=== PATIENT | female | born 1975 | race Caucasian/White ===

== ENCOUNTER 2017-01-25 06:40 | Day surgery (SDC) | payer OTHER ==
[2017-01-25] VITALS (10 sets, daily range): BP systolic 96–121; BP diastolic 59–77; PULSE 65–108; RESP 7–26; O2SAT 95–99
[~2017-01-25] VITALS: Ht 162.6 cm; Wt 70.3 kg
[~2017-01-25 06:40] MED LIST: BUSP15TA3 PO; CeFAZolin Inj 2 GM in IV Premix 1 EACH IV ONE; NORG1TAB32 PO; OMEP20CA11 PO; ONDA4TAB6 PO; OXYC1TAB24 PO; TOPI-59 PO; TRAZ-115 PO; VALA500T38 PO
[2017-01-25] MEDS ORDERED: Ketamine 10 mg/mL 20 mL Inj ONE (06:41)
[2017-01-25] MEDS ORDERED: Glycopyrrolate 0.2 MG/ML 1mL Inj ONE (06:41)
[2017-01-25] MEDS ORDERED: Neostigmine 1 mg/mL 10 mL Inj ONE (06:41)
[2017-01-25] MEDS ORDERED: fentaNYL-PF 50 mCg/mL 2 mL Inj ONE (06:41)
[2017-01-25] MEDS ORDERED: Propofol 10,000 mCg/mL 20 mL Inj ONE (06:41)
[2017-01-25] MEDS ORDERED: Dexamethasone 4 mg/mL Inj ONE (06:41)
[2017-01-25] MEDS ORDERED: Ondansetron 2 mg/mL 2 mL Inj ONE (06:41)
[2017-01-25] MEDS ORDERED: Lactated Ringer's 1,000 ML IV SCH (07:24)
[2017-01-25] MEDS ORDERED: Lactated Ringer's 500 ML IV PRN (07:24)
--- NOTE | 2017-01-25 07:24 | PCM.HPANE ---
Patient Data Surgeon Admitting Provider: Attending Provider:Mariella Castro MD Primary Care Physician:Luh South MD Other Provider:Carleen Contrerasingham Anesthesia Reason for Visit Biliary Dyskinesia Ht/WT & BMI Height (Feet): 5 Height (Inches): 4 Weight (Kilograms): 71.75 Body Mass Index 27.00 Allergies Coded Allergies: codeine (Verified Allergy, Severe, Nausea,Vomiting, 01/25/17) hydromorphone HCl (Verified Allergy, Severe, CHEST PAIN, 01/25/17) Past Anesthesia History Anesthesia History: Positive for:: Anesthesia Reactions (vomiting and VERY talkative), Denies:: Abnormal Airway, Difficult Intubation, Fam Anesthesia Reaction, Fam Malignant Hypertherm, Malignant Hyperthermia Diabetes History Hx Diabetes?: No MRSA MRSA: No Medications Hypertension Medication: No Home Meds Incl Beta Christal: No Active Scripts oxyCODONE-Acetaminophen 5-325 mg 1 Each Tablet1-2 Tab PO Q6H PRN For Pain #15 TABLET Prov:Enzo Draper MD 01/06/16 Ondansetron (Zofran)4 Mg Tablet4 Mg PO Q4H PRN For Nausea #10 TABLET Prov:Enzo Draper MD 01/06/16 Reported Medications Norgestrel-Ethinyl Estradiol (Low-Ogestrel)1 Each Tablet1 Each PO DAILY 01/06/16 Valacyclovir 500 Mg [id number] Mg PO HS 01/06/16 Trazodone 50 Mg Jbdkmp30 Mg PO HS 30 Days Ref 0 05/29/14 Buspirone 15 Mg Lqpsvs70 Mg PO BID 30 Days Ref 0 05/29/14 Discontinued Reported Medications Omeprazole 20 Mg Capsule.dr20 Mg PO DAILY Ref 0 01/18/17 Topiramate 25 Mg Qhadcq79 Mg PO HS Ref 0 01/06/16 Clonazepam 0.5 Mg Tablet0.5 Mg PO BID PRN For Anxiety Ref 0 01/06/16 History History of ENT Problems?: Yes HEENT History: Positive for:: Dysphagia (something feel stuck in throat) Denies:: Abnormal Airway Cataracts Difficult Intubation Glaucoma Hearing Problem Sinus Problem TMJ Denture Type: None Teeth Condition: Within Normal Limits Hx of Heart Problems?: Yes Cardiovascular History: Denies:: AICD Abdominal Aortic Aneurism Atrial Fibrillation Cardiac Surgery Chest Pain Congestive Heart Failure Coronary Artery Disease Edema Heart Murmur Hypertension Irregular Heartbeat Pacemaker Peripheral Vascular Rheumatic Fever Thrombophlebitis Valvular Heart Disease Hx of Respiratory Problem?: Yes Respiratory History: Positive for:: Pneumonia (2011) Denies:: Asthma COPD Chest Surgery Cough Dyspnea Emphysema Hemoptysis Pulmonary Embolism Tuberculosis Hx Neurologic Problems?: Yes Neurological History: Positive for:: Headaches (Related to C2 being out, tx with chiropractic adjustment) Denies:: Alzheimer's Disease CVA Dementia Dizziness Multiple Sclerosis Parkinson's Disease Seizures TIA Hx of GI Problems?: Yes Hx of Problems?: No Genitourinary History: Denies:: HX of Hemodialysis Kidney Stones Urinary Tract Infection HX of Peritoneal Dialysis: No Female Hx: Denies:: Currently Endometriosis Problems with Breasts? Skin History: Denies:: History Skin Disorders? Pressure Ulcers Hx Musculoskeletal Problems?: No Musculoskeletal History: Denies:: Back Injury Degenerative Joint Fibromyalgia Joint Replacement Musculoskeletal Trauma Myasthenia Gravis Osteoarthritis Rheumatoid Arthritis Systemic Lupus Psycho Social History: Positive for:: Anxiety Denies:: Bipolar Disorder Hx Depression Suicide Attempt Hx Surgeries?: Yes (Appy, tonsillectomy) Hx Any Other Health Problems?: Yes Other History: Positive for:: Hospitalization Denies:: Cancer Endocrine Disease Thyroid Disease History Blood Transfusions: Positive for:: Accept Blood Products? Denies:: Blood Transfusions Hx Diabetes: No Hx Alcohol Use: Yes (Wine with dinner)Alcoholic Drinks Per Day: 1-2 glasses of wineHx Substance Use: No Smoking Status: Never Smoker Have You Smoked inLast 12 mo: No Stop/Bang Treated for Sleep Apnea?: No Do You Have a CPAP Machine?: No S-Snoring: Do You Snore Loudly: No T-Tired: feel tired, fatigued: No O-Obsered: Observed not breath: No P-Blood Pressure: treated: No B- Body Mass Index > 35 kg/m2: No A- Age over 50: No N- Neck Large Circumference: No G- Gender Male: No MONE Total Score: 0 MONE Risk Assessment: Low Risk, <3 Yes Risk Assessment Category Category 1A: Patient has history of documented sleep apnea, and HAS NOT received any narcotic, sedative or anesthesia administration during this stay. Category 1B: Patient has history of documented sleep apnea, and HAS received any narcotic , sedative or anesthesia administration during this stay Category 2: Patient has SUSPECTED Obstructive Sleep Apnea, and HAS received any narcotic , sedative or anesthesia administration during this stay. Category 3: Patient has SUSPECTED Obstructive Sleep Apnea and HAS NOT received narcotic, sedative or anesthesia administration during this stay. Category 4: Outpatient in Procedural Areas with known sleep apnea or who screen positive for High Risk via the STOP/BANG questionnaire. Exam Exam General Appearance: Alert, Oriented X3, Cooperative, No Acute Distress HEENT/AIRWAY: MP 2 Lungs: Clear to Auscultation, Normal Air Movement Heart: Exam Unremarkable, Regular Rate/Rhythm, No Murmurs/Rubs/Gallops Plan Impression Patient chart reviewed, patient interviewed and anesthestic plan with risks, benefits, and alternatives discussed, and informed consent obtained. ASA Physical Status: ASA2 Mod Systemic Disease Anesthetic Plan: GA Bene/Risks/Altern/Consents: Yes HP Complete Prior to Induction: Yes Pedro Calvo MD Jan 25, 2017 07:24
[2017-01-25] MEDS ORDERED: MetoCLOpramide 5 mg/mL 2 mL Inj IVPUSH PRN (07:25)
[2017-01-25] MEDS ORDERED: Phenylephrine 10,000 mCg/mL Inj IVPUSH PRN (07:25)
[2017-01-25] MEDS ORDERED: Dexamethasone 4 mg/mL Inj IVPUSH PRN (07:25)
[2017-01-25] MEDS ORDERED: EPHEDrine Sulfate 50 mg/mL Inj IVPUSH PRN (07:25)
[2017-01-25] MEDS ORDERED: Ondansetron 2 mg/mL 2 mL Inj IVPUSH PRN (07:25)
[2017-01-25] MEDS: Lactated Ringer's 1,000 ML IV SCH ×2 (07:35→09:50)
[2017-01-25] MEDS ORDERED: Bupivacaine-MPF 0.5% W/EPI 30 mL Inj INFILTRATE ONE (09:49)
[2017-01-25] MEDS ORDERED: Lactated Ringer's 1,000 ML IV ONE (10:44)
--- NOTE | 2017-01-25 11:06 | PCM.SURGOP ---
Surgical Operative Report Date of Service: Jan 25, 2017 Pre Operative Diagnosis Biliary dyskinesia Post Operative Diagnosis Biliary dyskinesia Procedure: Laparoscopic cholecystectomy Surgeon and Sock Lining Examiner: Surgeon: Mariella Castro MD Assistants: Ladarius Troy MD R3; Amirah Hagen MS3 Indication for Procedure This is a 40-year-old woman who presented with episodes of postprandial abdominal pain and bloating, worse after fatty meals. Over the course of several years she underwent multiple studies for workup, which included for endoscopies, colonoscopy, abdominal ultrasound, and HIDA scan. The only abnormality was a reduced gallbladder ejection fraction. Therefore she was consented for laparoscopic cholecystectomy. Findings: Normal-appearing gallbladder with no stones Procedure Details The patient was brought to the operating room and placed in supine position. General endotracheal anesthesia was smoothly induced. Antibiotics were infused. A warming blanket and SCDs were placed. A foot board was placed. The operative field was prepped and draped in sterile fashion. A pause was performed to confirm the correct patient, procedure, site, and side. A transverse 10 mm incision was made just below the umbilicus. The abdomen was entered under direct vision using a Jake port. Three additional 5 mm ports were placed in the epigastrium and right upper quadrant. The gallbladder was identified and lifted cephalad. Dissection then proceeded to identify the cystic duct, cystic artery, and to expose the bottom one third of the cystic plate. Once there were two and only two structures entering the gallbladder, the cystic duct was clipped on the gallbladder and twice on the patient side, and the cystic artery was clipped twice on the patient's side and once on the gallbladder side, and both were then divided. The gallbladder was then removed from its bed on the liver with electrocautery. Prior to completely removing the gallbladder, a final look was taken at the stump of the cystic artery and cystic duct, and there was no bleeding or bile leak. The gallbladder was then fully removed from the liver and placed in an EndoCatch bag and removed. The three 5 mm ports were removed under direct vision, the 10 mm mid abdominal port was removed, and a [id number] 0 PDS was used to close the fascia. There was no fascial defect at the end of the case. 0.5% Marcaine with epinephrine was infused at all port sites for postoperative analgesia. The skin was closed with subcuticular 4-0 Monocryl. Sterile dressings were placed. The patient was awakened from general anesthesia and taken to the postoperative care unit in good condition. Complications There were no periprocedural complications identified. Surgical Specimen Removed: Yes Specimen sent to Pathology: Yes Surgical Specimen description: Gallbladder Anesthetic Plan: GA Grafts, Implants: None Output, Estimated Blood Loss: 2 (ml) Blood Administration during bynum: No Mariella Castro MD Jan 25, 2017 11:06
[2017-01-25] MEDS: fentaNYL-PF 50 mCg/mL 2 mL Inj IVPUSH PRN ×3 (11:14→11:51)
[2017-01-25] MEDS ORDERED: oxyCODONE-Acetamin 5-325 mg Tablet PO PRN (11:20)
--- NOTE | 2017-01-25 11:22 | PCM.DISURG ---
Surgical Discharge Instruction Date of Service Jan 25, 2017 Dates of Hospitalization Date of Hospital Admission Providers Admitting Physician: Primary Care Physician: Luh South MD Attending Physician: Mariella Castro MD Discharge Diagnosis Post Operative diagnosis Biliary dyskinesia Diet Discharge Diet: No restrictions Activity Discharge Activity-General: Activity as pain allows, No lifting >15 pounds for 2 weeks, No driving while taking narcotic Dressing and Incisional Care Dressing Care: Allow Steri Stripes to fall off, Remove outer dressing after 24 hrs Hygiene: May shower after (24 hours), DO NOT soak incision under water, NO bathtub, hot tub or whirlpool Follow Up Plan Follow Up Plan Follow up in the general surgery clinic in 2-4 weeks. Please call at any time with questions or concerns. Call your provider for: Fever, Chills, Increasing abdominal pain, Wound redness , Increasing wound pain, Discharge @ incision, pus discharge Michele Troy MD Jan 25, 2017 11:22
--- NOTE | 2017-01-25 14:01 | PCM.ANEP1 ---
Post Anesthesia PACU Phase 1 Assessment Vital Signs Vital Signs Date Time Temp Pulse Resp B/P Pulse Ox O2 Delivery O2 Flow Rate FiO2 01/25/17 12:05 65 18 116/75 99 Room Air 01/25/17 11:56 76 17 118/77 96 Room Air 01/25/17 11:55 67 26 116/73 95 Room Air 01/25/17 11:45 36.2 79 19 119/74 98 Room Air 01/25/17 11:37 36.6 01/25/17 11:30 67 7 96/63 99 Simple Mask 7 01/25/17 11:25 69 9 111/65 99 Simple Mask 7 01/25/17 11:20 83 12 113/64 99 Simple Mask 7 01/25/17 11:15 108 19 118/68 98 Simple Mask 7 01/25/17 11:10 37.7 112/59 01/25/17 07:39 36.5 78 14 121/73 98 Room Air Anesthetic Administered: GA Level of Alertness: Sleepy, easy to arouse Pain: No Nausea or Vomiting: No CV Function & Hydration Stable: Yes Airway Device: Oralpharangeal Airway Oxygen Delivery: Simple Mask Lungs: Clear to Auscultation, Normal Air Movement Dermatome Level: Full Sensation PACU Phase 2 Assessment Complications: No Follow up Care: No Patient Instructions Provided: N/A Pedro Calvo MD Jan 25, 2017 14:01
--- NOTE | 2017-01-29 11:43 | PATH ---
SURGICAL PATHOLOGY Attending Physician:Mariella Castro MD CASE STATUS: Signed Out PATIENT NAME: NIDA MARIE PID: [id number] : 1975 DATE COLLECTED:01/25/2017 22:47 SPECIMEN: Gallbladder CLINICAL HISTORY: BILIARY DYSKINESIA 1). GALLBLADDER FINAL DIAGNOSIS: 1.GALLBLADDER: ACALCULOUS, MILD CHRONIC CHOLECYSTITIS. ICD10 K81.1 GROSS DESCRIPTION: Received in formalin, labeled with the patient's name and "gallbladder" is one an glistening, previously opened gallbladder measuring 7.0 x 2.5 x 1.5 cm. The serosa is an and glistening. The previously opened being rough and green. There are no stones within the container or gallbladder. The wall is palpable and measures up to 0.3 cm in thickness with a an and green eroded lining. No mass or lesions are identified. Body And Frame Man sections are taken from the cystic duct as well as the proximal middle and distal body of the gallbladder, and are submitted in one cassette. [id number]) MICRO DESCRIPTION: See diagnosis. ICD-9 CODES: CPT CODES: 1: 37004 Electronically Signed Out Jay Stroud MD [facility] [address], [place] [address] Technical component performed at [facility], [facility] [address], [place], [address]
== END 2017-01-25 23:59 | disposition home or self-care (01) ==
LOC: SAS 06:40
PROVIDERS: ATTEND Surgery
DX: K81.1 Chronic cholecystitis (principal); R13.10 Dysphagia, unspecified; R51 Headache; F41.9 Anxiety disorder, unspecified; Z79.899 Other long term (current) drug therapy; Z88.5 Allergy status to narcotic agent; Z88.8 Allergy status to other drugs, medicaments and biological substances
CPT/HCPCS: 47562; J0690; J1100; J2250; J2405; J2710; J3010; J7120